=== PATIENT | male | born 1995 | race American Indian/Alaskan Native ===

== ENCOUNTER 2022-02-26 00:04 | Emergency (ER) | payer MEDICARE ==
[2022-02-26] MEDS ORDERED: IBUPROFEN 600 MG TAB PO ONE (09:18)
--- NOTE | 2022-02-26 09:26 | Emergency Department Report ---
- General Chief Complaint: Wound/Laceration Stated Complaint: LF HAND LAC Source: patient Mode of arrival: Ambulatory Limitations: No Limitations - History of Present Illness Initial Comments: 26-year-old male with no significant medical history presents to the emergency department with laceration. Patient reports yesterday he accidentally punched a wall last night, sustained a laceration to his left forearm. Reports pain has resolved. No weakness numbness or tingling of the extremity, no bony pain, full range of motion in his extremity, unsure of his vaccine status. -: Sudden, hour(s) Extremity Location: Left: Hand Place: home Patient Tetanus UTD: No Context: accidental Associated Symptoms: denies: pain, loss of feeling/numbness, suspect foreign body present, unable to move injured part, weakness followed by dizziness, nausea/vomiting, fever - Related Data Previous Rx's Medication Instructions Recorded Last Taken Type Ibuprofen [Motrin 600 MG tab] 600 mg PO ONCE PRN #20 tablet 02/26/22 Unknown Rx Allergies Allergy/AdvReac Type Severity Reaction Status Date / Time No Known Allergies Allergy Unverified 02/26/22 00:39 ED Review of Systems ROS: Stated complaint: LF HAND LAC Other details as noted in HPI Constitutional: no symptoms reported Eyes: as per HPI Respiratory: denies: see HPI, cough Cardiovascular: denies: chest pain, palpitations Endocrine: see HPI Gastrointestinal: denies: abdominal pain, nausea, vomiting Musculoskeletal: denies: joint swelling, arthralgia, myalgia Skin: lesions Neurological: denies: headache, weakness, numbness, paresthesias Psychiatric: denies: anxiety ED Past Medical Hx - Past Medical History Previous Medical History?: No - Medications Home Medications: Home Medications Medication Instructions Recorded Confirmed Last Taken Type Ibuprofen [Motrin 600 MG tab] 600 mg PO ONCE PRN #20 tablet 02/26/22 Unknown Rx ED Physical Exam - General Limitations: No Limitations General appearance: alert, in no apparent distress - Head Head exam: Present: atraumatic - Eye Eye exam: Present: normal appearance - ENT ENT exam: Present: normal exam, normal orophraynx - Neck Neck exam: Present: normal inspection - Respiratory Respiratory exam: Present: normal lung sounds bilaterally. Absent: respiratory distress - Cardiovascular Cardiovascular Exam: Present: regular rate, normal rhythm - GI/Abdominal GI/Abdominal exam: Present: soft - Extremities Exam Extremities exam: Present: normal inspection, full ROM, normal capillary refill. Absent: tenderness, calf tenderness - Back Exam Back exam: Present: normal inspection, full ROM. Absent: CVA tenderness (R) - Neurological Exam Neurological exam: Present: alert, oriented X3. Absent: CN II-XII intact - Psychiatric Psychiatric exam: Present: normal affect, normal mood - Skin Skin exam: Present: warm, dry, intact, other - Other Other exam information: Abrasion to his left forearm, no indication for laceration repair, no swelling no bleeding no bruising no ecchymosis of the extremity, patient has full range of motion, no bony tenderness full ED Course Vital Signs 02/26/22 00:37 Temperature 97.8 F Pulse Rate 99 H Respiratory 16 Rate Blood Pressure 128/82 [Right] O2 Sat by Pulse 99 Oximetry ED Medical Decision Making - Medical Decision Making Medication for imaging no bony tenderness no wounds that requires repair. Vaccine status update, wound care provided, discharged with supportive therapy, RICE management, outpatient follow-up. I discussed all of this with patient including return precautions with understanding for Critical care attestation.: If time is entered above; I have spent that time in minutes in the direct care of this critically ill patient, excluding procedure time. ED Disposition Clinical Impression: Hand injury, Abrasion Disposition: HOME / SELF CARE / HOMELESS Is pt being admited?: No Does the pt Need Aspirin: No Condition: Stable Instructions: Wound Care, Pediatric Prescriptions: Ibuprofen [Motrin 600 MG tab] 600 mg PO ONCE PRN #20 tablet PRN Reason: Pain , Severe (7-10) Referrals: PRIMARY CARE, [Primary Care Provider] - 3-5 Days
[2022-02-26 10:47] VITALS: BP 130/80
== END 2022-02-26 10:47 | disposition home or self-care (01) ==
LOC: ED 00:04
DX: S50.812A Abrasion of left forearm, initial encounter (principal); X58.XXXA Exposure to other specified factors, initial encounter; Y93.89 Activity, other specified; Y92.89 Other specified places as the place of occurrence of the external cause; Y99.8 Other external cause status
CPT/HCPCS: 99283